=== PATIENT | female | born 1965 | race Hispanic/Latino ===

== ENCOUNTER 2017-01-13 12:29 | Outpatient (CLI) | payer BC ==
[2017-01-13 18:55] LABS: Cardiac Risk 2.6 (Less than 4.5)
[2017-01-13 18:57] LABS: Hemoglobin A1c 8.1 % (4.0-6.0)
== END 2017-01-13 12:30 | disposition home or self-care (01) ==
LOC: NAVSJIPCSP 12:29
PROVIDERS: ATTEND Internal Medicine
DX: E78.5 Hyperlipidemia, unspecified (principal); E11.9 Type 2 diabetes mellitus without complications
CPT/HCPCS: 80061; 83036